=== PATIENT | female | born 1960 | race Caucasian/White ===

== ENCOUNTER 2018-11-18 07:40 | Outpatient (CLI) | payer OTHER ==
[~2018-11-18 07:40] MED LIST: DICLOFENAC SODI50 MG PO; ETODOLAC500 MG; NABUMETONE500 MG PO; NEURONTIN300 MG PO; NORFLEX100MG; PERCOCET 5/3251 TAB PO; PRILOSEC OTC20 MG PO; [UNRECOGNIZED DRUG - OTHER] MC
== END 2018-11-18 07:43 | disposition home or self-care (01) ==
LOC: SONOGRAMA 07:40 → MAMO-SONO 08:15
DX: R10.84 Generalized abdominal pain (principal)

== ENCOUNTER 2019-04-21 08:28 | Outpatient (CLI) | payer OTHER | END 2019-04-21 08:54 | disposition home or self-care (01) | LOC: TOM 08:28 | DX: R41.2 Retrograde amnesia (principal); R51 Headache; M12.9 Arthropathy, unspecified; M19.90 Unspecified osteoarthritis, unspecified site ==

== ENCOUNTER 2020-03-01 08:44 | Outpatient (CLI) | payer OTHER | END 2020-03-01 08:46 | disposition home or self-care (01) | LOC: TOM 08:44 | PROVIDERS: ATTEND Internal Medicine Cardiovascular Disease | DX: R10.84 Generalized abdominal pain (principal) ==

== ENCOUNTER 2022-04-25 07:24 | Outpatient (CLI) | payer OTHER | END 2022-04-25 07:25 | disposition home or self-care (01) | LOC: NUCLEAR 07:24 | PROVIDERS: ATTEND Internal Medicine Gastroenterology | DX: K31.84 Gastroparesis (principal); E11.43 Type 2 diabetes mellitus with diabetic autonomic (poly)neuropathy | CPT/HCPCS: 78264; A9541 ==

== ENCOUNTER 2023-03-12 12:17 | Outpatient (CLI) | payer OTHER | END 2023-03-12 12:33 | disposition home or self-care (01) | LOC: RAD 12:17 | PROVIDERS: ATTEND Internal Medicine Cardiovascular Disease | DX: M12.9 Arthropathy, unspecified (principal) ==

== ENCOUNTER 2023-03-22 10:49 | Outpatient (CLI) | payer OTHER | END 2023-03-22 10:50 | disposition home or self-care (01) | LOC: NUCLEAR 10:49 | PROVIDERS: ATTEND Internal Medicine Cardiovascular Disease | DX: I87.2 Venous insufficiency (chronic) (peripheral) (principal) ==

== ENCOUNTER 2023-05-07 10:36 | Outpatient (CLI) | payer OTHER | END 2023-05-07 10:44 | disposition home or self-care (01) | LOC: SONOGRAMA 10:36 | PROVIDERS: ATTEND Internal Medicine Gastroenterology | DX: R10.9 Unspecified abdominal pain (principal) ==

== ENCOUNTER 2023-06-03 12:17 | Outpatient (CLI) | payer OTHER | END 2023-06-03 12:29 | disposition home or self-care (01) | LOC: TOM 12:17 | PROVIDERS: ATTEND Otolaryngology Otology & Neurotology | DX: H95.2 Intraoperative hemorrhage and hematoma of ear and mastoid process complicating a procedure (principal) ==

== ENCOUNTER 2023-09-18 19:33 | Emergency (ER) | payer OTHER ==
[~2023-09-18] VITALS: Ht 162.6 cm; Wt 93.0 kg
== END 2023-09-19 01:10 | disposition home or self-care (01) ==
LOC: ER 19:34
DX: J45.909 Unspecified asthma, uncomplicated (principal)

== ENCOUNTER 2024-10-11 14:21 | Emergency (ER) | payer OTHER ==
[~2024-10-11] VITALS: Ht 162.6 cm; Wt 90.3 kg
[2024-10-11] MEDS ORDERED: FAMOTIDINE40 MG PO (14:41)
[2024-10-11] MEDS ORDERED: AMITRIPTYLINE H25 MG PO (14:41)
[2024-10-11] MEDS ORDERED: ESKALITH300 MG PO (14:41)
[2024-10-11] MEDS ORDERED: OMEPRAZOLE20 MG PO (14:41)
[2024-10-11] MEDS ORDERED: GUAIFENESIN 200 MG/10 ML BLIST.PACK PO ONE (16:30)
[2024-10-11] MEDS ORDERED: METHYLPREDNISOLONE SOD SUCC 125 MG VIAL ONE (16:33)
[2024-10-11] MEDS ORDERED: IPRATROPIUM/ALBUTEROL SULFATE 3 ML AMPUL.NEB IH SCH (16:45)
[2024-10-11] MEDS ORDERED: METHYLPREDNISOLONE SOD SUCC 125 MG VIAL IV ONE (16:45)
[2024-10-11] MEDS ORDERED: BENZONATATE 100 MG CAPSULE PO ONE (16:45)
[2024-10-11 16:48] LABS: HEMATOCRIT 39.2 % (36.0-45.00); HEMOGLOBIN 13.1 g/dL (12.0-15.00); MEAN CELL VOLUME 94.8 fL (80.00-100.00); MEAN CORPUSCULAR HEMOGLOBIN 31.7 pg (27.00-32.0); MEAN CORPUSCULAR HGB CONC 33.5 g/dl (32.0-36.0); PLATELET COUNT 512 K/uL (150-450); RED BLOOD COUNT 4.14 M/uL (4.00-6.00); RED CELL DISTRIBUTION WIDTH 13.8 % (11.5-14.5)
[2024-10-11] MEDS ORDERED: IPRATROPIUM/ALBUTEROL SULFATE 3 ML AMPUL.NEB IH ONE (17:42)
[2024-10-11 17:48] LABS: CALCIUM 10.8 mg/dL (8.5-10.1); CREATININE SERUM 0.57 mg/dL (0.55-1.02); GFR 107.13; POTASSIUM 4.61 mEq/L (3.5-5.1)
[2024-10-12 00:12] LABS: ABG PH 7.386 (7.35-7.45); ABG PO2 79.1 mmHg (80-100); ABG pCO2 47.7 mmHg (35-45); BASE EXCESS 2.2 mmol/l; SaO2 95.5 %
[2024-10-12 00:13] LABS: Tco2 29.5 mmol/l; allen test SATISFACTORY; o2 21 %; puncture site RADIAL LEFT
== END 2024-10-11 20:51 | disposition home or self-care (01) ==
LOC: ER 14:23
PROVIDERS: Emergency Medicine
DX: J40 Bronchitis, not specified as acute or chronic (principal); R05.9 Cough, unspecified; Z20.822 Contact with and (suspected) exposure to COVID-19

== ENCOUNTER 2025-06-23 09:51 | Outpatient (CLI) | payer OTHER ==
[~2025-06-23 09:51] MED LIST changes: +AMITRIPTYLINE H25 MG PO; +ESKALITH300 MG PO; +FAMOTIDINE40 MG PO; +OMEPRAZOLE20 MG PO
== END 2025-06-23 09:52 | disposition home or self-care (01) ==
LOC: NUCLEAR 09:51
PROVIDERS: ATTEND Internal Medicine Cardiovascular Disease
DX: R41.2 Retrograde amnesia (principal)